=== PATIENT | male | born 1970 | race Caucasian/White ===

== ENCOUNTER 2018-05-20 13:35 | Inpatient (IN) | payer SELFPAY ==
[2018-05-20 15:03] LABS: CKMB 18.3 ng/mL (0-6.6)
[2018-05-20] MEDS ORDERED: Enoxaparin Sodium 100 MG/ML SYRINGE ONE (16:10)
--- NOTE | 2018-05-20 16:21 | HP ---
PRIMARY CARE PHYSICIAN: [facility]. REASON FOR ADMISSION: [id number] [place]. HISTORY OF PRESENT ILLNESS: A 48-year-old male, who has no known medical history, who went to [facility] Emergency Room earlier today with complaint of dizziness, nausea, and he was found with significantly elevated troponin and subsequently, he was transferred to our hospital for higher level of care. The patient reports that since this Wednesday, the patient was having diarrhea, which was liquid in nature several times per day without any associated pus, blood, or fever, only associated with crampy abdominal discomfort and occasional nausea. He was trying [id number] measures for diarrhea and he was avoiding hospitalization. He was not feeling any weakness up until this morning when he woke up at that time, he was experiencing dizziness and vertigo symptoms associated with nausea. He has to keep his eye closed to feel better. He called his friend, who is doctor and advised him to go to emergency room for evaluation. At [facility] Emergency Room, the patient had EKG, which showed RBBB. His troponin was elevated with 6.2. His CBC and CMP were normal. He was given aspirin. Subsequently, he was transferred to our hospital for higher level of care. The patient also received Zofran at [facility] Emergency Room. In our Emergency Room, the patient has received Lovenox. Cardiology was notified from emergency room. The patient does not have any chest pain during this entire. He did not have any shortness of breath, syncope, or fall. He denies any fever or chills. He denies any ear fullness or hearing loss. He denies any sick exposure or recent travel. He denies anybody sick with similar problem in his family. He denies any relation of diarrhea with food. PAST MEDICAL HISTORY: Reviewed and negative. PAST SURGICAL HISTORY: Reviewed and negative. PAST PSYCHIATRIC HISTORY: Reviewed and negative. SOCIAL HISTORY: The patient drinks alcohol twice a month. He smokes occasionally cigar. He denies any other illicit drug abuse. FAMILY HISTORY: Per the patient, his biological father had heart attack in his 17. No family history of stroke, but his mother recently from cancer. ALLERGIES: NO KNOWN DRUG ALLERGIES. CURRENT HOME MEDICATIONS: The patient is not taking any prescribed or non-prescribed medication. REVIEW OF SYSTEMS: CONSTITUTIONAL: Negative for weight loss or gain, ability to conduct usual activities. SKIN: Negative for rash, itching. EYES: Negative for double vision, pain. ENT/MOUTH: Negative for nose bleeding, neck stiffness, pain, tenderness. CARDIOVASCULAR: Negative for palpitations, dyspnea on exertion, orthopnea. RESPIRATORY: Negative for shortness of breath, wheezing, cough, hemoptysis, fever or night sweats. GASTROINTESTINAL: Negative for poor appetite, abdominal pain, heartburn, nausea, vomiting, constipation, or diarrhea. GENITOURINARY: Negative for urgency, frequency, dysuria, nocturia. MUSCULOSKELETAL: Negative for pain, swelling. NEUROLOGIC/PSYCHIATRIC: Negative for anxiety, depression. ALLERGY/IMMUNOLOGIC: Negative for skin rash, bleeding tendency. Please see my HPI for pertinent positive and negative, all other review of systems reviewed and negative except as mentioned in the HPI. EMERGENCY ROOM COURSE: The patient has received aspirin, Zofran at [facility] Emergency Room, and he has received Lovenox 1 mg/kg in our emergency room. PHYSICAL EXAMINATION: VITAL SIGNS: Vital signs most recently, currently blood pressure 124/83, pulse 74, respiratory rate 18, temperature 97.6, and saturation 97% on room air. Weight 97.5 kg. GENERAL: The patient is currently alert, awake, no obvious acute distress. HEENT: Head; normocephalic and atraumatic. Eyes; pupils are round and reactive to light. Extraocular muscle intact. No obvious nystagmus noted. ENT, oropharynx within normal limits. Moist mucous membranes. No oral lesion. No pharyngeal erythema. No exudate. NECK: Supple. No JVD. No thyromegaly. No carotid bruit. No jugular venous distention. LUNGS: Clear to auscultation without any rhonchi or rales. CARDIAC: S1 and S2 regular without any murmur. No gallop. No rub. ABDOMEN: Soft. Bowel sounds present. Nontender. Nondistended. No organomegaly. No mass. No suprapubic tenderness. BACK: Unremarkable. No CVA tenderness. EXTREMITIES: Upper extremities; passive movement of all joints are normal. Lower extremity, no edema. Good distal pulsation. SKIN: No skin rash. HEMATOLOGIC: No lymphadenopathy. PSYCHIATRIC: Normal affect. SIGNIFICANT LABORATORY DATA: CK-MB 18.3, troponin I 4.75. CBC; WBC 7.2, hemoglobin 16.1, platelet of 312. BMP; sodium 139, potassium 3.3, chloride 99, calcium ionized 1.14, glucose 150, BUN 21, creatinine 1.1, anion gap 21, AST 98, ALT 34, alkaline phosphatase 71, albumin 4.0, and total protein 8.0. EKG showing RBBB. CK-MB 38.1, troponin 6.18, myoglobin 142. ASSESSMENT AND PLAN: Impression: 1. [id number] myocardial infarction. The patient has right bundle-branch block. The patient has significantly elevated troponin, though he does not have any chest pain, clinically, he has [id number] myocardial infarction. This patient will need Cardiology consultation. Echocardiography will be obtained. We will check urine drug screen. We will continue aspirin 325 mg p.o. daily, Lovenox 1 mg/kg subcu twice daily will be given. Check lipid profile and start Lipitor 40 mg p.o. at bedtime. Further decision and investigation will defer to Cardiology. We will monitor on telemetry floor. 2. Dizziness. The patient's current presentation is consistent with benign positional vertigo. We will treat symptomatically with Antivert 25 mg t.i.d. 3. Diarrhea. If the patient has further recurrent diarrhea, then we will send stool for infection workup to rule out any infectious etiology. We will treat symptomatically at this point. 4. Right bundle-branch block, on EKG. We do not have any previous EKG to compare. Cardiology will be consulted. We will monitor on telemetry floor. 5. Deep venous thrombosis prophylaxis. The patient is already on full dose of Lovenox therapy. GI prophylaxis, Pepcid 20 mg p.o. b.i.d. CODE STATUS: The patient is full code. The patient's is surrogate decision maker. DISPOSITION PLAN: Based on clinical course. We are expecting the patient's stay in hospital more than two midnights. Plan of care discussed with the patient and family members at bedside in the emergency room. Job ID: [id number]
[2018-05-20 17:29] LABS: Critical Call Chem Troponin I RESULT DECREASING
[2018-05-20] MEDS ORDERED: Zolpidem Tartrate 5 MG TAB PO PRN (18:51)
[2018-05-20] MEDS ORDERED: Loratadine 10 MG TAB PO PRN (18:51)
[2018-05-20] MEDS ORDERED: Ondansetron PF 4 MG/2 ML Vial IVP PRN (18:51)
[2018-05-20] MEDS ORDERED: Calcium Carbonate 500 MG ChewTAB PO PRN (18:51)
[2018-05-20] MEDS ORDERED: Nitroglycerin 0.4 MG TAB (25 Tab Bottle) SL PRN (18:51)
[2018-05-20] MEDS ORDERED: Acetaminophen 325 MG TAB PO PRN (18:51)
[2018-05-20] MEDS ORDERED: Senokot S 8.6-50 MG TAB PO PRN (18:51)
[2018-05-20] MEDS ORDERED: Sodium Chloride 0.65% Nasal 44 ML BOT EA NARE PRN (18:51)
[2018-05-20] MEDS ORDERED: Ondansetron ODT 4 MG TAB PO PRN (18:51)
[2018-05-20] MEDS ORDERED: Artificial Tear Sol 15 ML BOT EA EYE PRN (18:51)
[2018-05-20] MEDS ORDERED: hydrALAZINE 20 MG/ML VIAL SLOW IVP PRN (18:51)
[2018-05-20] MEDS ORDERED: HYDROcodone/Acetaminophen 5/325 mg Tablet PO PRN ×2 (18:51→19:52)
[2018-05-20] MEDS ORDERED: Cepastat Lozenges 1 LOZ PO PRN (18:51)
[2018-05-20] MEDS ORDERED: Loperamide HCl 2 MG CAP PO PRN (18:51)
[2018-05-20] MEDS ORDERED: Eucerin (Mineral Oil/Petrolatum,White) 30 gm Jar TOP PRN (18:51)
[2018-05-20] MEDS ORDERED: Clopidogrel Bisulfate 300 MG TAB PO SCH (19:15)
[2018-05-20] MEDS: Meclizine HCl 25 MG TAB PO SCH ×2 (19:20→21:48)
[2018-05-20] MEDS: NS 0.9% w/ 20 MEQ KCL 1,000 ML/1,000 ML BAG IV SCH (19:42)
[2018-05-20] MEDS ORDERED: Scopolamine 1.5 mg/72 hour Patch TD SCH (19:45)
[2018-05-20 20:10] VITALS: BMI 31.0
[2018-05-20 20:20] LABS: Critical Call Chem Troponin I RESULT DECREASING
[2018-05-20 20:40] LABS: CKMB 14.5 ng/mL (0-6.6); Critical Call CKMB RESULT DECREASING
[2018-05-20] MEDS: Famotidine 20 MG TAB PO SCH (21:48)
[2018-05-20] MEDS: Atorvastatin Calcium 40 MG TAB PO SCH (21:49)
[2018-05-20] MEDS: Metoprolol Tartrate 25 MG TAB PO SCH (21:49)
[2018-05-21 05:08] LABS: #Basophils 0.1 thou/uL (0.0-0.2); #Eosinphils 0.2 thou/uL (0.0-0.7); #Lymphocytes 1.8 thou/uL (1.20-3.40); #Monocytes 0.8 thou/uL (0.11-0.59); %Basophils 1.1 % (0.0-1.0); %Eosinophils 2.7 % (0.0-10.0); %Lymphocytes 31.2 % (21.0-51.0); %Monocytes 13.5 % (0.0-10.0); %Neutrophils 51.6 % (42.0-75.0); Hemoglobin 14.4 g/dL (14.0-18.0); Mean Corpuscular Hemoglobin 33.1 pg (27.0-31.0); Mean Corpuscular Volume 94.5 fL (78.0-98.0); Mean Platelet Volume 7.2 fL (7.4-10.4); Platelet Count 304 thou/uL (130-400); RBC Distribution Width 11.5 % (11.5-14.5); Red Blood Cell (RBC) Count 4.35 mill/uL (4.70-6.10); White Blood Cell (WBC) Count 5.8 thou/uL (4.8-10.8)
[2018-05-21 05:18] LABS: Hemoglobin A1c 5.5 % (4.0-6.0)
[2018-05-21 05:29] LABS: ALT (SGPT) 23 U/L (8-55); AST (SGOT) 28 U/L (5-34); Albumin 3.5 g/dL (3.5-5.0); Alkaline Phosphatase 62 U/L (40-150); Anion Gap 14 mmol/L (10-20); BUN (Urea Nitrogen) 19 mg/dL (8.9-20.6); Bilirubin, Total 0.7 mg/dL (0.2-1.2); Calc. Creatinine Clearance 142 mL/min (70-130); Calcium 8.9 mg/dL (7.8-10.44); Carbon Dioxide 21 mmol/L (22-29); Cardiac Risk 7.7 (Less than 4.5); Chloride 108 mmol/L (98-107); Cholesterol 161 mg/dl (< 200 Desired); Estimated GFR-MDRD Greater than 90; Globulin 3.1 g/dL (2.4-3.5); Glucose 84 mg/dL (70-105); HDL Cholesterol 21 mg/dL (>60 Neg Risk); LDL Cholesterol, Calculated 109 mg/dL; Potassium 3.9 mmol/L (3.5-5.1); Protein, Total 6.6 g/dL (6.0-8.3); Sodium 139 mmol/L (136-145); Triglycerides 155 mg/dL (Less than 150)
[2018-05-21] MEDS: Meclizine HCl 25 MG TAB PO SCH ×3 (05:41→21:42)
[2018-05-21] MEDS ORDERED: Aspirin 325 MG TAB PO SCH (09:00)
[2018-05-21] MEDS: NS 0.9% w/ 20 MEQ KCL 1,000 ML/1,000 ML BAG IV SCH ×2 (09:15→22:03)
[2018-05-21] MEDS: Clopidogrel Bisulfate 75 MG TAB PO SCH (09:20)
[2018-05-21] MEDS: Famotidine 20 MG TAB PO SCH ×2 (09:20→21:42)
[2018-05-21] MEDS: Metoprolol Tartrate 25 MG TAB PO SCH ×2 (09:20→21:42)
[2018-05-21] MEDS: Enoxaparin Sodium 100 MG/ML SYRINGE SC SCH ×2 (09:20→21:42)
--- NOTE | 2018-05-21 09:33 | PDOC.PN ---
- Subjective Encounter Start Date: 05/21/18 Encounter Start Time: 07:50 -: old records requested/rev Patient seen and examined. No new complaints. No overnight events has less vertigo, no diarrhoea any more - Objective Resuscitation Status - Order Detail: 05/20/18 15:48 Resuscitation Status Routine Resuscitation Status: FULL: Full Resuscitation MAR Reviewed: Yes Vital Signs & Weight: Vital Signs (12 hours) Temp Pulse Resp BP Pulse Ox 05/21/18 09:24 98.2 F 78 18 134/82 95 05/21/18 04:00 98.8 F 63 18 126/82 96 05/21/18 00:00 97.5 F L 63 18 133/85 96 Weight Weight 216 lb 6.4 oz I&O: 05/20/18 05/21/18 05/22/18 06:59 06:59 06:59 Intake Total 844 Output Total 300 Balance 544 Result Diagrams: 05/21/18 04:45 05/21/18 04:45 EKG Reviewed by me: Yes (nsr) Phys Exam - Physical Examination Constitutional: NAD HEENT: PERRLA, moist MMs, sclera anicteric Neck: no JVD, supple Respiratory: no wheezing, no rales, no rhonchi Cardiovascular: RRR, no significant murmur, no rub Gastrointestinal: soft, non-tender, no distention, positive bowel sounds Musculoskeletal: no edema, pulses present Neurological: non-focal, normal sensation, moves all 4 limbs Lymphatic: no nodes Psychiatric: normal affect, A&O x 3 Skin: no rash, normal turgor Dx/Plan (1) NSTEMI (non-ST elevated myocardial infarction) Code(s): I21.4 - NON-ST ELEVATION (NSTEMI) MYOCARDIAL INFARCTION Status: Acute (2) Dizziness Code(s): R42 - DIZZINESS AND GIDDINESS Status: Acute (3) Dyslipidemia Code(s): E78.5 - HYPERLIPIDEMIA, UNSPECIFIED Status: Acute (4) Obesity (BMI 30.0-34.9) Code(s): E66.9 - OBESITY, UNSPECIFIED Status: Acute (5) RBBB Code(s): I45.10 - UNSPECIFIED RIGHT BUNDLE-BRANCH BLOCK Status: Acute (6) Acute diarrhea Code(s): R19.7 - DIARRHEA, UNSPECIFIED Status: Resolved - Plan cont current plan of care, plan discussed w/ family * today cardiac cath * echo * continue medical therapy for nstemi * cardiology on case * discussed with family * will monitor today. Review of Systems - Review of Systems ENT: negative: Ear Pain, Ear Discharge, Nose Pain, Nose Discharge, Nose Congestion, Mouth Pain, Mouth Swelling, Throat Pain, Throat Swelling, Other Respiratory: negative: Cough, Dry, Shortness of Breath, Hemoptysis, SOB with Excertion, Pleuritic Pain, Sputum, Wheezing Cardiovascular: negative: chest pain, palpitations, orthopnea, paroxysmal nocturnal dyspnea, edema, light headedness, other Gastrointestinal: negative: Nausea, Vomiting, Abdominal Pain, Diarrhea, Constipation, Melena, Hematochezia, Other Genitourinary: negative: Dysuria, Frequency, Incontinence, Hematuria, Retention , Other Musculoskeletal: negative: Neck Pain, Shoulder Pain, Arm Pain, Back Pain, Hand Pain, Leg Pain, Foot Pain, Other Skin: negative: Rash, Lesions, Hira, Bruising, Other - Medications/Allergies Allergies/Adverse Reactions: Allergies Allergy/AdvReac Type Severity Reaction Status Date / Time codeine Allergy Verified 05/20/18 19:48 Medications: Current Medications Acetaminophen (Tylenol) 650 mg PO Q4H PRN PRN Reason: Headache/Fever/Mild Pain (1-3) Hydrocodone Bitart/Acetaminophen ([place] 5/325) 1 tab PO Q4H PRN PRN Reason: Moderate Pain (4-6) Artificial Tears (Tears Renewed 15ml Bottle) 2 drop EA EYE PRN PRN PRN Reason: Dry Eyes Aspirin (Aspirin Chewable) 81 mg PO DAILY [facility] Last Admin: 05/21/18 09:20 Dose: 81 mg Atorvastatin Calcium (Lipitor) 40 mg PO HS [facility] Last Admin: 05/20/18 21:49 Dose: 40 mg Calcium Carbonate (Tums) 1,000 mg PO Q4H PRN PRN Reason: Heartburn or Indigestion Clopidogrel Bisulfate (Plavix) 75 mg PO DAILY [facility] Last Admin: 05/21/18 09:20 Dose: 75 mg Enoxaparin Sodium (Lovenox) 100 mg SC 0900,2100 [facility] Last Admin: 05/21/18 09:20 Dose: 100 mg Famotidine (Pepcid) 20 mg PO BID [facility] Last Admin: 05/21/18 09:20 Dose: 20 mg Hydralazine HCl (Apresoline) 10 mg SLOW IVP Q4H PRN PRN Reason: SBP > 180 and HR < 70 Potassium Chloride/Sodium Chloride (Ns 0.9% W/ 20 Meq Kcl) 1,000 ml in 1,000 mls @ 75 mls/hr IV .[id number] [facility] Last Admin: 05/21/18 09:15 Dose: 1,000 mls Loperamide HCl (Imodium) 2 mg PO PRN PRN PRN Reason: Diarrhea/Loose Stools Loratadine (Claritin) 10 mg PO DAILYPRN PRN PRN Reason: Sinus Symptoms Meclizine HCl (Antivert) 25 mg PO Q8HR [facility] Last Admin: 05/21/18 05:41 Dose: 25 mg Metoprolol Tartrate (Lopressor) 12.5 mg PO BID [facility] Last Admin: 05/21/18 09:20 Dose: 12.5 mg Mineral Oil/White Petrolatum (Eucerin Cream) 0 gm TOP BIDPRN PRN PRN Reason: Dry Skin Nitroglycerin (Nitrostat) 0.4 mg SL Q5MIN PRN PRN Reason: Chest Pain Ondansetron HCl (Zofran Odt) 4 mg PO Q6H PRN PRN Reason: Nausea/Vomiting Last Admin: 05/20/18 21:49 Dose: 4 mg Ondansetron HCl (Zofran) 4 mg IVP Q6H PRN PRN Reason: Nausea/Vomiting Last Admin: 05/20/18 19:23 Dose: 4 mg Senna/Docusate Sodium (Senokot S) 2 tab PO BID PRN PRN Reason: Constipation Sodium Chloride ([place] Nasal [place] 0.65%) 0 ml EA NARE QIDPRN PRN PRN Reason: Nasal Congestion Throat Lozenges (Cepastat Lozenges) 1 karthikeyan PO Q2H PRN PRN Reason: Sore Throat Zolpidem Tartrate (Ambien) 5 mg PO HSPRN PRN PRN Reason: Insomnia
[2018-05-21 10:21] LABS: Platelet Count 297 thou/uL (130-400)
[2018-05-21 10:32] LABS: Calc. Creatinine Clearance 147 mL/min (70-130); Estimated GFR-MDRD Greater than 90
[2018-05-21 13:50] LABS: Bilirubin Negative (Negative); Blood, Urine Negative (Negative); Clarity CLOUDY (Clear); Glucose, Urine (Dipstick) Negative (Negative); Leukocyte Negative (Negative); Nitrite Negative (Negative); Protein, Urine (Dipstick) Negative (Neg-Trace); Specific Gravity, Urine 1.024 (1.002-1.036); Urobilinogen 0.2 mg/dL (0.2-1.0)
[2018-05-21 13:52] LABS: Bacteria/HPF None Seen HPF (None Seen)
[2018-05-21 13:54] LABS: Pathc Cast-AUWi Flag 5.18 (0-2.49)
[2018-05-21 14:05] LABS: RBC/HPF None Seen HPF (0-3)
[2018-05-21 14:06] LABS: Hyaline Casts/LPF 0-3 HYALINE CAST LPF (0-3 Hyaline); Manual Microscopic Reviewed? No Path Casts Seen; Renal Epithelial None Seen HPF (0-3); Transitional Epithelial NONE SEEN HPF (0-3)
[2018-05-21 15:20] LABS: Amphetamine Not Detected (NotDetected); Barbiturates Screen Not Detected (NotDetected); Benzodiazepine Screen Not Detected (NotDetected); Cocaine Metabolite Screen Not Detected (NotDetected); Medtox Control Line Valid? VALID (VALID); Medtox Reader # READER 1; Methadone Not Detected (NotDetected); Methamphetamine Not Detected (NotDetected); Opiate Screen Not Detected (NotDetected); Oxycodone Screen Not Detected (NotDetected); Phencyclidine (PCP) Not Detected (NotDetected); THC/Cannabinoid Screen Not Detected (NotDetected); Tricyclic Screen Not Detected (NotDetected)
[2018-05-21] MEDS: Atorvastatin Calcium 40 MG TAB PO SCH (21:42)
[2018-05-22] MEDS: Meclizine HCl 25 MG TAB PO SCH ×3 (05:21→21:02)
[2018-05-22] MEDS: Enoxaparin Sodium 100 MG/ML SYRINGE SC SCH (09:09)
[2018-05-22] MEDS: Famotidine 20 MG TAB PO SCH ×2 (09:09→21:02)
[2018-05-22] MEDS: Metoprolol Tartrate 25 MG TAB PO SCH ×2 (09:09→21:01)
[2018-05-22] MEDS: Clopidogrel Bisulfate 75 MG TAB PO SCH (09:09)
--- NOTE | 2018-05-22 10:16 | PDOC.PN ---
- Subjective Encounter Start Date: 05/22/18 Encounter Start Time: 08:20 Patient seen and examined. No new complaints. No overnight events no chest pain, no vertigo, no diarrhoea - Objective Resuscitation Status - Order Detail: 05/20/18 15:48 Resuscitation Status Routine Resuscitation Status: FULL: Full Resuscitation MAR Reviewed: Yes Vital Signs & Weight: Vital Signs (12 hours) Temp Pulse Resp BP BP Pulse Ox 05/22/18 08:55 98.7 F 63 16 131/87 97 05/22/18 08:40 97 05/22/18 04:19 98.7 F 54 L 14 122/81 95 Weight Weight 220 lb 4.8 oz I&O: 05/21/18 05/22/18 05/23/18 06:59 06:59 06:59 Intake Total 844 1881 Output Total 300 630 Balance 544 1251 Result Diagrams: 05/21/18 10:09 05/21/18 10:09 Radiology Reviewed by me: Yes (echo report noted) EKG Reviewed by me: Yes (nsr) Phys Exam - Physical Examination Constitutional: NAD HEENT: PERRLA, moist MMs, sclera anicteric Neck: no JVD, supple Respiratory: no wheezing, no rales, no rhonchi Cardiovascular: RRR, no significant murmur, no rub Gastrointestinal: soft, non-tender, no distention, positive bowel sounds Musculoskeletal: no edema, pulses present Neurological: non-focal, normal sensation, moves all 4 limbs Lymphatic: no nodes Psychiatric: normal affect, A&O x 3 Skin: no rash, normal turgor Dx/Plan (1) NSTEMI (non-ST elevated myocardial infarction) Code(s): I21.4 - NON-ST ELEVATION (NSTEMI) MYOCARDIAL INFARCTION Status: Acute (2) Dizziness Code(s): R42 - DIZZINESS AND GIDDINESS Status: Acute (3) Dyslipidemia Code(s): E78.5 - HYPERLIPIDEMIA, UNSPECIFIED Status: Acute (4) Obesity (BMI 30.0-34.9) Code(s): E66.9 - OBESITY, UNSPECIFIED Status: Acute (5) RBBB Code(s): I45.10 - UNSPECIFIED RIGHT BUNDLE-BRANCH BLOCK Status: Acute (6) Acute diarrhea Code(s): R19.7 - DIARRHEA, UNSPECIFIED Status: Resolved - Plan cont current plan of care, plan discussed w/ family * medication reviewed as below * symptomatic treatment * DC IVF * continue current medical therapy for NSTEMI as below * possible cardiac cath tomorrow * discussed with bedside. Review of Systems - Review of Systems ENT: negative: Ear Pain, Ear Discharge, Nose Pain, Nose Discharge, Nose Congestion, Mouth Pain, Mouth Swelling, Throat Pain, Throat Swelling, Other Respiratory: negative: Cough, Dry, Shortness of Breath, Hemoptysis, SOB with Excertion, Pleuritic Pain, Sputum, Wheezing Cardiovascular: negative: chest pain, palpitations, orthopnea, paroxysmal nocturnal dyspnea, edema, light headedness, other Gastrointestinal: negative: Nausea, Vomiting, Abdominal Pain, Diarrhea, Constipation, Melena, Hematochezia, Other Genitourinary: negative: Dysuria, Frequency, Incontinence, Hematuria, Retention , Other Musculoskeletal: negative: Neck Pain, Shoulder Pain, Arm Pain, Back Pain, Hand Pain, Leg Pain, Foot Pain, Other - Medications/Allergies Allergies/Adverse Reactions: Allergies Allergy/AdvReac Type Severity Reaction Status Date / Time codeine Allergy Verified 05/20/18 19:48 Medications: Current Medications Acetaminophen (Tylenol) 650 mg PO Q4H PRN PRN Reason: Headache/Fever/Mild Pain (1-3) Hydrocodone Bitart/Acetaminophen ([place] 5/325) 1 tab PO Q4H PRN PRN Reason: Moderate Pain (4-6) Artificial Tears (Tears Renewed 15ml Bottle) 2 drop EA EYE PRN PRN PRN Reason: Dry Eyes Aspirin (Aspirin Chewable) 81 mg PO DAILY [facility] Last Admin: 05/22/18 09:10 Dose: 81 mg Atorvastatin Calcium (Lipitor) 40 mg PO HS [facility] Last Admin: 05/21/18 21:42 Dose: 40 mg Calcium Carbonate (Tums) 1,000 mg PO Q4H PRN PRN Reason: Heartburn or Indigestion Clopidogrel Bisulfate (Plavix) 75 mg PO DAILY [facility] Last Admin: 05/22/18 09:09 Dose: 75 mg Enoxaparin Sodium (Lovenox) 100 mg SC 0900,2100 [facility] Last Admin: 05/22/18 09:09 Dose: 100 mg Famotidine (Pepcid) 20 mg PO BID [facility] Last Admin: 05/22/18 09:09 Dose: 20 mg Hydralazine HCl (Apresoline) 10 mg SLOW IVP Q4H PRN PRN Reason: SBP > 180 and HR < 70 Potassium Chloride/Sodium Chloride (Ns 0.9% W/ 20 Meq Kcl) 1,000 ml in 1,000 mls @ 75 mls/hr IV .[id number] [facility] Last Admin: 05/21/18 22:03 Dose: 1,000 mls Loperamide HCl (Imodium) 2 mg PO PRN PRN PRN Reason: Diarrhea/Loose Stools Loratadine (Claritin) 10 mg PO DAILYPRN PRN PRN Reason: Sinus Symptoms Meclizine HCl (Antivert) 25 mg PO Q8HR [facility] Last Admin: 05/22/18 05:21 Dose: 25 mg Metoprolol Tartrate (Lopressor) 12.5 mg PO BID [facility] Last Admin: 05/22/18 09:09 Dose: 12.5 mg Mineral Oil/White Petrolatum (Eucerin Cream) 0 gm TOP BIDPRN PRN PRN Reason: Dry Skin Nitroglycerin (Nitrostat) 0.4 mg SL Q5MIN PRN PRN Reason: Chest Pain Ondansetron HCl (Zofran Odt) 4 mg PO Q6H PRN PRN Reason: Nausea/Vomiting Last Admin: 05/20/18 21:49 Dose: 4 mg Ondansetron HCl (Zofran) 4 mg IVP Q6H PRN PRN Reason: Nausea/Vomiting Last Admin: 05/20/18 19:23 Dose: 4 mg Senna/Docusate Sodium (Senokot S) 2 tab PO BID PRN PRN Reason: Constipation Sodium Chloride ([place] Nasal [place] 0.65%) 0 ml EA NARE QIDPRN PRN PRN Reason: Nasal Congestion Throat Lozenges (Cepastat Lozenges) 1 karthikeyan PO Q2H PRN PRN Reason: Sore Throat Zolpidem Tartrate (Ambien) 5 mg PO HSPRN PRN PRN Reason: Insomnia
[2018-05-22] MEDS ORDERED: Communication Order-Pharmacy FS SCH (10:45)
[2018-05-22] MEDS ORDERED: Rosuvastatin 20 MG TAB PO SCH (21:00)
[2018-05-23] MEDS: Metoprolol Tartrate 25 MG TAB PO SCH (05:32)
[2018-05-23] MEDS: Famotidine 20 MG TAB PO SCH (05:32)
[2018-05-23] MEDS: Meclizine HCl 25 MG TAB PO SCH ×2 (05:33→15:08)
[2018-05-23] MEDS: Clopidogrel Bisulfate 75 MG TAB PO SCH (05:33)
[2018-05-23] MEDS ORDERED: Fentanyl 100 MCG/2 ML VIAL ONE (06:55)
[2018-05-23] MEDS ORDERED: Midazolam HCl 2 mg/2 ml Vial ONE (06:55)
[2018-05-23] MEDS ORDERED: Lidocaine 1% (PF) 30 ML VIAL ONE (06:55)
[2018-05-23] MEDS ORDERED: Nitroglycerin 0.4 MG TAB (25 Tab Bottle) SL PRN (08:48)
[2018-05-23] MEDS ORDERED: Sodium Chloride 0.9% 200 ML IV SCH (09:00)
--- NOTE | 2018-05-23 10:33 | PDOC.PN ---
- Subjective Encounter Start Date: 05/23/18 Encounter Start Time: 11:21 Patient seen and examined. No new complaints. No overnight events - Objective Resuscitation Status - Order Detail: 05/20/18 15:48 Resuscitation Status Routine Resuscitation Status: FULL: Full Resuscitation MAR Reviewed: Yes Vital Signs & Weight: Vital Signs (12 hours) Temp Pulse Resp BP BP Pulse Ox 05/23/18 09:20 64 16 140/87 97 05/23/18 04:39 99.3 F 56 L 16 133/84 97 Weight Weight 213 lb 12.8 oz I&O: 05/22/18 05/23/18 05/24/18 06:59 06:59 06:59 Intake Total 1881 1560 Output Total 630 Balance 1251 1560 Result Diagrams: 05/23/18 10:25 05/23/18 10:24 EKG Reviewed by me: Yes (nsr) Phys Exam - Physical Examination Constitutional: NAD HEENT: PERRLA, moist MMs, sclera anicteric Neck: no JVD, supple Respiratory: no wheezing, no rales, no rhonchi Cardiovascular: RRR, no significant murmur, no rub Gastrointestinal: soft, non-tender, no distention, positive bowel sounds Musculoskeletal: no edema, pulses present Neurological: non-focal, normal sensation Lymphatic: no nodes Psychiatric: normal affect Skin: no rash, normal turgor Dx/Plan (1) NSTEMI (non-ST elevated myocardial infarction) Code(s): I21.4 - NON-ST ELEVATION (NSTEMI) MYOCARDIAL INFARCTION Status: Acute (2) Dizziness Code(s): R42 - DIZZINESS AND GIDDINESS Status: Acute (3) Dyslipidemia Code(s): E78.5 - HYPERLIPIDEMIA, UNSPECIFIED Status: Acute (4) Obesity (BMI 30.0-34.9) Code(s): E66.9 - OBESITY, UNSPECIFIED Status: Acute (5) RBBB Code(s): I45.10 - UNSPECIFIED RIGHT BUNDLE-BRANCH BLOCK Status: Acute (6) Acute diarrhea Code(s): R19.7 - DIARRHEA, UNSPECIFIED Status: Resolved - Plan cont current plan of care * today plan for cardiac cath, is normal * medication reviewed as below * symptomatic treatment * see discharge summery Review of Systems - Review of Systems ENT: negative: Ear Pain, Ear Discharge, Nose Pain, Nose Discharge, Nose Congestion, Mouth Pain, Mouth Swelling, Throat Pain, Throat Swelling, Other Respiratory: negative: Cough, Dry, Shortness of Breath, Hemoptysis, SOB with Excertion, Pleuritic Pain, Sputum, Wheezing Cardiovascular: negative: chest pain, palpitations, orthopnea, paroxysmal nocturnal dyspnea, edema, light headedness, other Gastrointestinal: negative: Nausea, Vomiting, Abdominal Pain, Diarrhea, Constipation, Melena, Hematochezia, Other Genitourinary: negative: Dysuria, Frequency, Incontinence, Hematuria, Retention , Other Musculoskeletal: negative: Neck Pain, Shoulder Pain, Arm Pain, Back Pain, Hand Pain, Leg Pain, Foot Pain, Other Skin: negative: Rash, Lesions, Hira, Bruising, Other - Medications/Allergies Allergies/Adverse Reactions: Allergies Allergy/AdvReac Type Severity Reaction Status Date / Time codeine Allergy Verified 05/20/18 19:48 Medications: Current Medications Acetaminophen (Tylenol) 650 mg PO Q4H PRN PRN Reason: Headache/Fever/Mild Pain (1-3) Hydrocodone Bitart/Acetaminophen ([place] 5/325) 1 tab PO Q4H PRN PRN Reason: Moderate Pain (4-6) Artificial Tears (Tears Renewed 15ml Bottle) 2 drop EA EYE PRN PRN PRN Reason: Dry Eyes Aspirin (Aspirin Chewable) 81 mg PO DAILY [facility] Last Admin: 05/23/18 05:32 Dose: 81 mg Calcium Carbonate (Tums) 1,000 mg PO Q4H PRN PRN Reason: Heartburn or Indigestion Clopidogrel Bisulfate (Plavix) 75 mg PO DAILY [facility] Last Admin: 05/23/18 05:33 Dose: 75 mg Famotidine (Pepcid) 20 mg PO BID [facility] Last Admin: 05/23/18 05:32 Dose: 20 mg Hydralazine HCl (Apresoline) 10 mg SLOW IVP Q4H PRN PRN Reason: SBP > 180 and HR < 70 Sodium Chloride (Normal [place] 0.9%) 200 mls @ 0 mls/hr IV ONE [facility] Stop: 05/23/18 11:00 Loperamide HCl (Imodium) 2 mg PO PRN PRN PRN Reason: Diarrhea/Loose Stools Loratadine (Claritin) 10 mg PO DAILYPRN PRN PRN Reason: Sinus Symptoms Meclizine HCl (Antivert) 25 mg PO Q8HR [facility] Last Admin: 05/23/18 05:33 Dose: 25 mg Metoprolol Tartrate (Lopressor) 12.5 mg PO BID [facility] Last Admin: 05/23/18 05:32 Dose: 12.5 mg Mineral Oil/White Petrolatum (Eucerin Cream) 0 gm TOP BIDPRN PRN PRN Reason: Dry Skin Miscellaneous Information (Communication Order-Pharmacy) 0 each FS ONE [facility] Stop: 05/23/18 21:00 Nitroglycerin (Nitrostat) 0.4 mg SL Q5MIN PRN PRN Reason: Chest Pain Nitroglycerin (Nitrostat) 0.4 mg SL Q5MIN PRN PRN Reason: Chest Pain Ondansetron HCl (Zofran Odt) 4 mg PO Q6H PRN PRN Reason: Nausea/Vomiting Last Admin: 05/20/18 21:49 Dose: 4 mg Ondansetron HCl (Zofran) 4 mg IVP Q6H PRN PRN Reason: Nausea/Vomiting Last Admin: 05/20/18 19:23 Dose: 4 mg Senna/Docusate Sodium (Senokot S) 2 tab PO BID PRN PRN Reason: Constipation Sodium Chloride ([place] Nasal [place] 0.65%) 0 ml EA NARE QIDPRN PRN PRN Reason: Nasal Congestion Sodium Chloride (Flush - Normal Saline) 10 ml IVF Q12HR [facility] Last Admin: 05/23/18 05:33 Dose: 10 ml Sodium Chloride (Flush - Normal Saline) 10 ml IVF PRN PRN PRN Reason: Saline Flush Throat Lozenges (Cepastat Lozenges) 1 karthikeyan PO Q2H PRN PRN Reason: Sore Throat Zolpidem Tartrate (Ambien) 5 mg PO HSPRN PRN PRN Reason: Insomnia
[2018-05-23 10:43] LABS: Platelet Count 363 thou/uL (130-400)
[2018-05-23 11:01] LABS: Calc. Creatinine Clearance 142 mL/min (70-130); Estimated GFR-MDRD Greater than 90
--- NOTE | 2018-05-23 11:42 | DIS ---
DATE OF ADMISSION: 05/20/2018 DATE OF DISCHARGE: 05/23/2018 PRIMARY CARE PHYSICIAN: [facility] Call admission. DISCHARGE DISPOSITION: Home. PRIMARY DISCHARGE DIAGNOSES: 1. Acute diarrhea, resolved. 2. Dizziness likely due to benign positional vertigo, resolved. 3. Non-ST elevation myocardial infarction, likely due to myocarditis. SECONDARY DISCHARGE DIAGNOSES: 1. Dyslipidemia. 2. Obesity. 3. Right bundle branch block. PRIMARY PROCEDURE/OPERATION: Cardiac cath, which was essentially normal. RADIOLOGICAL INVESTIGATION: Echocardiography showed normal EF. SIGNIFICANT LABORATORY DATA: WBC 5.8, hemoglobin 15.0, platelets 363. Sodium 139, potassium 3.9, BUN 19, creatinine 0.90, calcium 8.9. Hemoglobin A1c 5.5. LFT normal. LDL 109. TSH 0.77. CK-MB 14.5, troponin 3.89. Urinalysis normal. Urine drug screen negative. DISCHARGE MEDICATIONS: 1. Antivert 25 mg q.8 hourly p.r.n. 2. Aspirin 81 mg daily. 3. Metoprolol 12.5 mg p.o. b.i.d. 4. Lipitor 10 mg p.o. at bedtime. CONTRAINDICATION: None. CODE STATUS: Full code. INPATIENT SANDER PORTABLE MACHINE: Dr. Phillips was following while in hospital. TEST RESULT PENDING ON DISCHARGE: None. ALLERGIES: CODEINE. DISCHARGE PLAN: Posthospital, the patient will follow up with Cardiology as an outpatient basis. HOSPITAL COURSE: A 48-year-old male, who was having gastroenteritis, which was presumed viral and it was already improving. He was also experiencing dizziness, which was related with positional vertigo. He had significantly abnormal troponin when he was evaluated at [facility], and that is why he was transferred to our hospital. Initially, we suspected non-ST elevation ND and that is why he was treated with medical treatment and Cardiology did cardiac cath today and that came back normal. We are suspecting that this patient's elevated troponin is retrospectively from myocarditis from viral illness. His echocardiography showing normal EF. Above-mentioned medication was prescribed upon discharge. He will follow up with primary care physician as well as Cardiology. The patient is seen and examined at bedside today. Please see my progress note from today for further detail. Job ID: [id number]
[2018-05-23] MEDS ORDERED: Iopamidol 370 76% 100 ML VIAL ONE (15:08)
[2018-05-23] MEDS ORDERED: Iopamidol 370 76% 50 ML VIAL FS ONE (15:08)
[2018-05-23 18:44] VITALS: BP 145/88; TEMP 98.9
--- NOTE | 2018-05-26 09:01 | PQF ---
[employer] Winform ViewerZEV KOHLI SALIM NOORJIBHAI MD [id number] CLINICAL DOCUMENTATION CLARIFICATION FORM: POST DISCHARGE Addendum to original discharge summary date: ____ Late entry note date: __ Please exercise your independent, professional judgment in responding to the clarification form. Clinical indicators are provided on the bottom of this form for your review Please check appropriate box(s): [X ] MYOCARDITIS [ ] NSTEMI [ ] Other diagnosis [ ] Unable to determine In addition, please specify: Present on Admission (POA): [X ] Yes [ ] No [ ] Unable to determine CLINICAL INDICATORS - SIGNS / SYMPTOMS / LABS - ELEVATED TROPONIN 6.2- H&P - NAUSEA, DIZZINESS- H&P - EKG SHOWED RBB- H&P - NSTEMI- H&P, D/S, ALL PROGRESS NOTES - MYOCARDITIS "WE ARE SUSPECTING PATIENTS ELEVATED TROPONIN IS RETROSPECTIVELY FROM MYOCARDITIS FROM VIRAL ILLNESS"- D/S RISKS: HIGH CHOLESTEROL- H&P, D/S, ALL PROGRESS NOTES TREATMENTS: Heart cath - CAME BACK NEGATIVE- 05/23 DR. BASSETT GIVEN LOVENOX IN ER- ED, H&P GIVEN ASPIRIN IN OUTSIDE ER- H&P (This form is maintained as a part of the permanent medical record) 2014 [employer]. All Rights Reserved [email or web address] [phone] [employer] Win[employer] Viewer [employer]
== END 2018-05-23 16:38 | disposition home or self-care (01) | DRG 287 ==
LOC: ERS 13:35 → ERHOLD 15:59 → 2NO 19:08
PROVIDERS: ADMIT Internal Medicine; ATTEND Internal Medicine
PROC: 4A023N7 Measurement of Cardiac Sampling and Pressure, Left Heart, Percutaneous Approach (ICD-10-PCS; principal; 2018-05-23)
PROC: B2111ZZ Fluoroscopy of Multiple Coronary Arteries using Low Osmolar Contrast (ICD-10-PCS; 2018-05-23)
PROC: B2151ZZ Fluoroscopy of Left Heart using Low Osmolar Contrast (ICD-10-PCS; 2018-05-23)
DX: I51.4 Myocarditis, unspecified (principal); I45.10 Unspecified right bundle-branch block; H81.10 Benign paroxysmal vertigo, unspecified ear; E78.5 Hyperlipidemia, unspecified; E66.9 Obesity, unspecified; Z68.30 Body mass index [BMI] 30.0-30.9, adult; A08.4 Viral intestinal infection, unspecified; Z82.49 Family history of ischemic heart disease and other diseases of the circulatory system; Z80.9 Family history of malignant neoplasm, unspecified
CPT/HCPCS: 36415; 80053; 80061; 80306; 81001; 82553; 82565; 83036; 84443; 84484; 85014; 85018; 85025; 85049; 93005; 93306; 93458; 94760; 96372; 99152; 99153; J1644; J1650; J2001; J2250; J2405; J3010; Q0162